=== PATIENT | male | born 2000 | race Hispanic/Latino ===

== ENCOUNTER 2021-04-09 12:02 | Emergency (ER) | payer SELFPAY ==
[2021-04-09] MEDS ORDERED: Ketorolac Tromethamine 30 MG/ML VIAL ONE (14:59)
[2021-04-09] MEDS ORDERED: Cyclobenzaprine 10 MG TAB ONE (15:00)
[2021-04-09] MEDS ORDERED: Acetaminophen 500 MG TAB ONE (15:06)
[2021-04-09] MEDS ORDERED: Morphine 4 MG/ML VIAL ONE (15:28)
== END 2021-04-09 15:34 | disposition home or self-care (01) ==
LOC: CSHERS 12:02
DX: S39.012A Strain of muscle, fascia and tendon of lower back, initial encounter (principal); F17.210 Nicotine dependence, cigarettes, uncomplicated; X50.9XXA Other and unspecified overexertion or strenuous movements or postures, initial encounter
CPT/HCPCS: 96372; 99283; J1885; J2270